=== PATIENT | male | born 1970 | race Caucasian/White ===

== ENCOUNTER 2017-10-31 14:18 | Emergency (ER) | payer BC ==
[~2017-10-31] VITALS: Ht 175.3 cm; Wt 90.9 kg
[2017-10-31 14:40] VITALS: BP 134/87; PULSE 83; RESP 18; TEMP 97.6; O2SAT 97
[2017-10-31] MEDS ORDERED: PRED20 PO (16:32)
--- NOTE | 2017-10-31 16:33 | PD ---
HPI Chief Complaint: Back/ Neck Pain or Injury Time Seen by Provider: 16:20 Travel History International Travel<30 days: No Contact w/Intl Traveler<30days: No Traveled to known affect area: No History of Present Illness HPI 47-year-old male here with low back pain radiating down into his right leg times one day. Patient has a history of sciatica. He is on chronic pain medication for this. He is down here visiting for bike week he reports his back pain flared up due to riding his bike. Denies injury or trauma. No fever. No incontinence. No saddle anesthesia. The paresthesia or weakness of the extremity is. PFSH Social History Tobacco Use: No Allergies-Medications (Allergen,Severity, Reaction): Coded Allergies: No Known Allergies (Unverified , 10/31/17) Reported Meds & Prescriptions Reported Meds & Active Scripts Active Prednisone 20 Mg Tab 40 Mg PO DAILY Take 40 mg (2 tablets) daily for 5 days Review of Systems Except as stated in HPI: all other systems reviewed are Neg General / Constitutional: No: Fever Eyes: No: Visual changes HENT: No: Headaches Cardiovascular: No: Chest Pain or Discomfort Respiratory: No: Shortness of Breath Gastrointestinal: No: Abdominal Pain Genitourinary: No: Dysuria Musculoskeletal: No: Pain Skin: No Rash Neurologic: No: Weakness Physical Exam Narrative GENERAL: Alert well-appearing 47 old male. Patient is well-appearing. No distress. SKIN: Warm and dry. HEAD: Atraumatic. Normocephalic. EYES: No injection or drainage. NECK: Supple CARDIOVASCULAR: Regular rate and rhythm. RESPIRATORY: No accessory muscle use. Clear to auscultation. Breath sounds equal bilaterally. GASTROINTESTINAL: Abdomen soft, non-tender, nondistended. MUSCULOSKELETAL: Extremities without clubbing, cyanosis, or edema. No obvious deformities. NEUROLOGICAL: Awake and alert. Motor grossly within normal limits. Five out of 5 muscle strength in the arms and legs. Normal sensation. Patient ambulating with a steady gait. PSYCHIATRIC: Appropriate mood and affect; insight and judgment normal. Data Data Last Documented VS Vital Signs Date Time Temp Pulse Resp B/P (MAP) Pulse Ox O2 Delivery O2 Flow Rate FiO2 10/31/17 14:40 97.6 83 18 134/87 (103) 97 Orders Orders Ketorolac Inj (Toradol Inj) (10/31/17 16:45) Ed Discharge Order (10/31/17 16:33) [facility] Medical Decision Making Medical Screen Exam Complete: Yes Emergency Medical Condition: Yes Differential Diagnosis Sciatica, acute on chronic low back pain, herniated disc, DJD Narrative Course For 7-year-old male here with sciatica pain. He has a normal neurologic exam. He is currently on chronic pain medication. He was given a shot of Toradol. Discharged home with steroids. Instructed to follow up with his primary doctor Diagnosis Primary Impression: Sciatica Qualified Codes: M54.31 - Sciatica, right side Referrals: Primary Care Physician Additional Instructions: Medication as directed. Avoid heavy lifting or choudhury his activity. Follow-up the primary doctor. Scripts Prednisone (Prednisone) 20 Mg Tab 40 MG PO DAILY, #10 TAB 0 Refills Take 40 mg (2 tablets) daily for 5 days Prov: Helen Skelton 10/31/17 Disposition: 01 DISCHARGE HOME Condition: Stable Helen Skelton Oct 31, 2017 16:33
[2017-10-31] MEDS ORDERED: KETOROLAC TROMETHAMINE 60 MG/2 ML (IM) VIAL IM ONE (16:45)
== END 2017-10-31 17:08 | disposition home or self-care (01) ==
LOC: NEPK 14:18
DX: M54.31 Sciatica, right side (principal); Z79.899 Other long term (current) drug therapy
CPT/HCPCS: 96372; 99283; J1885